=== PATIENT | female | born 1965 | race Caucasian/White ===

== ENCOUNTER 2023-03-30 08:08 | Observation (INO) ==
--- NOTE | 2023-03-01 15:27 | PAT Medication Instructions ---
Medication Instructions Date of Service March 01, 2023 Home Medications Medication Instructions Recorded ipratropium bromide 42 mcg (0.06 2 spray intranasal BID #15 mL 06/25/20 %) nasal spray Medication List azelastine 137 mcg (0.1 %) nasal spray aerosol 1 sprays intranasal BID cyclosporine 0.05 % eye drops in a dropperette (Restasis) 1 drops ophthalmic (eye) Q12H PRN ud diclofenac sodium 1 % topical gel (Voltaren) 2 gm topical QID PRN Pain fluticasone propionate 50 mcg/actuation nasal spray,suspension 2 sprays intranasal QPM pentosan polysulfate sodium 100 mg capsule (Elmiron) 100 mg PO HS pseudoephedrine HCl [Sudafed] 1 dose PO DAILY PRN Sinus Symptoms ipratropium bromide 42 mcg (0.06 %) nasal spray 2 spray intranasal BID calcium 300 mg chewable tablet 300 mg PO QPM nabumetone 500 mg tablet (Relafen) 500 mg PO TID PRN Pain topiramate 50 mg tablet (Topamax) 50 mg PO HS zinc 50 mg tablet 50 mg PO QPM ezetimibe 10 mg tablet (Zetia) 10 mg PO HS fenofibrate nanocrystallized 145 mg tablet 145 mg PO HS gabapentin 600 mg tablet 600 mg PO TID guaifenesin 600 mg tablet, extended release 12 hr (Mucinex) 600 mg PO Q12H PRN Congestion methocarbamol 750 mg tablet 750 mg PO TID omeprazole 40 mg capsule,delayed release 40 mg PO QPM venlafaxine 150 mg capsule,extended release 24 hr 300 mg PO PM acetaminophen 500 mg tablet (Acetaminophen Extra Strength) 1,000 mg PO Q6H PRN Migraine Headache alprazolam 2 mg tablet (Xanax) 2 mg PO HS cephalexin 500 mg capsule 500 mg PO TID cholecalciferol (vitamin D3) 125 mcg (5,000 unit) tablet (Vitamin D3) 125 mcg PO QPM coQ10 (ubiquinol) 100 mg capsule 100 mg PO HS levomefolate calcium 15 mg tablet (L-Methylfolate) 15 mg PO QPM magnesium 200 mg tablet 200 mg PO DAILY PRN Migraine Headache metoclopramide HCl 10 mg tablet (Reglan) 10 mg PO UD PRN Migraine Headache ondansetron HCl 8 mg tablet 8 mg PO Q8H PRN Migraine Headache potassium chloride 10 mEq tablet,extended release 20 meq PO QPM quetiapine 25 mg tablet (Seroquel) 75 mg PO HS sumatriptan succinate 100 mg tablet 100 mg PO UD PRN Migraine Headache venlafaxine 75 mg tablet 75 mg PO QPM MEDICATION INSTRUCTIONS: Continue as directed azelastine 137 mcg (0.1 %) nasal spray aerosol 1 sprays intranasal BID cyclosporine 0.05 % eye drops in a dropperette (Restasis) 1 drops ophthalmic (eye) Q12H PRN ud diclofenac sodium 1 % topical gel (Voltaren) 2 gm topical QID PRN Pain (*do not use after bathing prior to surgery) fluticasone propionate 50 mcg/actuation nasal spray,suspension 2 sprays intranasal QPM ipratropium bromide 42 mcg (0.06 %) nasal spray 2 spray intranasal BID ASK your surgeon for instructions nabumetone 500 mg tablet (Relafen) 500 mg PO TID PRN Pain STOP taking 2 weeks before surgery coQ10 (ubiquinol) 100 mg capsule 100 mg PO HS levomefolate calcium 15 mg tablet (L-Methylfolate) 15 mg PO QPM STOP taking 24 hours before surgery fenofibrate nanocrystallized 145 mg tablet 145 mg PO HS DO NOT take the morning of surgery pseudoephedrine HCl [Sudafed] 1 dose PO DAILY PRN Sinus Symptoms magnesium 200 mg tablet 200 mg PO DAILY PRN Migraine Headache guaifenesin 600 mg tablet, extended release 12 hr (Mucinex) 600 mg PO Q12H PRN Congestion methocarbamol 750 mg tablet 750 mg PO TID Take morning of surgery With a small sip of water, OTHERWISE NOTHING TO EAT OR DRINK AFTER MIDNIGHT: sumatriptan succinate 100 mg tablet 100 mg PO UD PRN Migraine Headache (if needed) cephalexin 500 mg capsule 500 mg PO TID metoclopramide HCl 10 mg tablet (Reglan) 10 mg PO UD PRN Migraine Headache ondansetron HCl 8 mg tablet 8 mg PO Q8H PRN Migraine Headache gabapentin 600 mg tablet 600 mg PO TID acetaminophen 500 mg tablet (Acetaminophen Extra Strength) 1,000 mg PO Q6H PRN Migraine Headache Take evening before surgery alprazolam 2 mg tablet (Xanax) 2 mg PO HS cholecalciferol (vitamin D3) 125 mcg (5,000 unit) tablet (Vitamin D3) 125 mcg PO QPM cephalexin 500 mg capsule 500 mg PO TID omeprazole 40 mg capsule,delayed release 40 mg PO QPM potassium chloride 10 mEq tablet,extended release 20 meq PO QPM venlafaxine 150 mg capsule,extended release 24 hr 300 mg PO PM venlafaxine 75 mg tablet 75 mg PO QPM ondansetron HCl 8 mg tablet 8 mg PO Q8H PRN Migraine Headache gabapentin 600 mg tablet 600 mg PO TID acetaminophen 500 mg tablet (Acetaminophen Extra Strength) 1,000 mg PO Q6H PRN Migraine Headache guaifenesin 600 mg tablet, extended release 12 hr (Mucinex) 600 mg PO Q12H PRN Congestion (if needed) methocarbamol 750 mg tablet 750 mg PO TID topiramate 50 mg tablet (Topamax) 50 mg PO HS zinc 50 mg tablet 50 mg PO QPM ezetimibe 10 mg tablet (Zetia) 10 mg PO HS calcium 300 mg chewable tablet 300 mg PO QPM Other Notes Check with prescriber for instructions: quetiapine 25 mg tablet (Seroquel) 75 mg PO HS Hold for 72hours prior to surgery: pentosan polysulfate sodium 100 mg capsule (Elmiron) 100 mg PO HS If you have any questions please call us at [phone] or [phone] or [phone] or [phone]
--- NOTE | 2023-03-06 15:03 | Anesthesiology Consultation ---
Date of Service March 06, 2023 Assessment & Plan (1) Encounter for pre-operative examination: - awaiting PCP office visit 03/14/23. PAT testing to be faxed to PCP office. - s/p L TKA 04/18/22 L3-L4 SAB 1 attempt + PNB. Patient reports awareness during initial stages of surgery. She also notes significant thirst after surgery. - Outpatient joint assessment: Patient is currently scheduled for inpatient pathway. If re-evaluated and patient/surgeon requests outpatient pathway, gracia mclaughlin is not acceptable candidate for outpatient joint program from anesthesia standpoint. Chart Review Chart Review: Pending: Refer to Additional Notes / Consult section and Patient seen in Pre Admission Testing Teaching & Discussion Pre-Anesthesia Teaching/Discussion Notes: Instructed NPO after midnight before surgery, except medications with 15 cc of water. Medication instructions provided according to the PAT guidelines. History Surgery Operation Date: 03/30/23 09:00 Proposed Procedures p Right Total Knee Arthroplasty - Tarik Yuen, Height/Weight Height: 5 ft 4 in Weight: 96.9 kg Allergies Allergy/AdvReac Type Severity Reaction Status Date / Time naproxen [From Aleve] Allergy Mild pruritus Verified 03/01/23 12:51 Penicillins Allergy Mild pruritus Verified 03/01/23 12:51 Sulfa (Sulfonamide Allergy Mild full body Verified 03/01/23 12:51 Antibiotics) rash codeine AdvReac Mild Vomiting Verified 03/01/23 12:51 oxycodone AdvReac Mild Vomiting Verified 03/01/23 12:51 sincalide [From Kinevac] AdvReac Mild syncope Verified 03/01/23 12:51 ("passed out") [id number] Reductase AdvReac Mild Muscle Pain Verified 03/01/23 12:51 Inhibitor Medications Home Medications Medication Instructions Recorded Confirmed Last Taken azelastine 137 mcg (0.1 %) nasal 1 sprays intranasal BID 12/09/19 03/01/23 04/17/22 10:30 spray aerosol cyclosporine 0.05 % eye drops in a 1 drops ophthalmic (eye) Q12H PRN 12/09/19 03/01/23 04/17/22 10:30 dropperette (Restasis) ud diclofenac sodium 1 % topical gel 2 gm topical QID PRN Pain 12/09/19 03/01/23 Unknown (Voltaren) fluticasone propionate 50 2 sprays intranasal QPM 12/09/19 03/01/23 04/17/22 10:30 mcg/actuation nasal spray,suspension pentosan polysulfate sodium 100 mg 100 mg PO HS 12/09/19 03/01/23 04/18/22 00:00 capsule (Elmiron) pseudoephedrine HCl [Sudafed] 1 dose PO DAILY PRN Sinus Symptoms 12/09/19 03/01/23 Unknown ipratropium bromide 42 mcg (0.06 2 spray intranasal BID #15 mL 12/11/19 03/01/23 04/17/22 10:30 %) nasal spray calcium 300 mg chewable tablet 300 mg PO QPM 07/05/21 03/01/23 07/13/21 nabumetone 500 mg tablet (Relafen) 500 mg PO TID PRN Pain 07/05/21 03/01/23 04/11/22 10:30 topiramate 50 mg tablet (Topamax) 50 mg PO HS 07/05/21 03/01/23 04/18/22 00:00 zinc 50 mg tablet 50 mg PO QPM 07/05/21 03/01/23 04/17/22 13:00 ezetimibe 10 mg tablet (Zetia) 10 mg PO HS 03/20/22 03/01/23 Unknown fenofibrate nanocrystallized 145 145 mg PO HS 03/20/22 03/01/23 04/18/22 00:00 mg tablet gabapentin 600 mg tablet 600 mg PO TID 03/20/22 03/01/23 04/18/22 02:00 guaifenesin 600 mg tablet, 600 mg PO Q12H PRN Congestion 03/20/22 03/01/23 04/16/22 22:30 extended release 12 hr (Mucinex) methocarbamol 750 mg tablet 750 mg PO TID 03/20/22 03/01/23 04/18/22 04:00 omeprazole 40 mg capsule,delayed 40 mg PO QPM 03/20/22 03/01/23 04/17/22 00:00 release venlafaxine 150 mg 300 mg PO PM 04/18/22 03/01/23 Unknown capsule,extended release 24 hr acetaminophen 500 mg tablet 1,000 mg PO Q6H PRN Migraine 03/01/23 03/01/23 Unknown (Acetaminophen Extra Strength) Headache alprazolam 2 mg tablet (Xanax) 2 mg PO HS 03/01/23 03/01/23 Unknown cephalexin 500 mg capsule 500 mg PO TID 03/01/23 03/01/23 Unknown cholecalciferol (vitamin D3) 125 125 mcg PO QPM 03/01/23 03/01/23 Unknown mcg (5,000 unit) tablet (Vitamin D3) coQ10 (ubiquinol) 100 mg capsule 100 mg PO HS 03/01/23 03/01/23 Unknown levomefolate calcium 15 mg tablet 15 mg PO QPM 03/01/23 03/01/23 Unknown (L-Methylfolate) magnesium 200 mg tablet 200 mg PO DAILY PRN Migraine 03/01/23 03/01/23 Unknown Headache metoclopramide HCl 10 mg tablet 10 mg PO UD PRN Migraine Headache 03/01/23 03/01/23 Unknown (Reglan) ondansetron HCl 8 mg tablet 8 mg PO Q8H PRN Migraine Headache 03/01/23 03/01/23 Unknown potassium chloride 10 mEq 20 meq PO QPM 03/01/23 03/01/23 Unknown tablet,extended release quetiapine 25 mg tablet (Seroquel) 75 mg PO HS 03/01/23 03/01/23 Unknown sumatriptan succinate 100 mg tablet 100 mg PO UD PRN Migraine Headache 03/01/23 03/01/23 Unknown venlafaxine 75 mg tablet 75 mg PO QPM 03/01/23 03/01/23 Unknown Additional Notes: Patient was instructed and it was corrected on provided medication instructions that fenofibrate needs stopped 48 hours prior to surgery. She verbalized full understanding and agreement, denied questions or concerns. Past Medical History Medical History (Updated 03/06/23 @ 15:15 by Soledad Martinez PA-C) Abnormal WBC count Follows with Dr. Lennon (Hem/Onc [facility]) recently discharged from heme Cystitis on elmiron Fibromyalgia Gastroparesis History of COVID-19 04/2021; fever, fatigue, cough; resolved History of endometriosis History of hyperlipidemia Hypokalemia on supplementation, follows with PCP Migraine Mild sleep apnea No device Obesity Sinus infection Rx cephalexin and prednisone, completed prednisone several days ago, symptoms improving with completing cephalexin Patient denies h/o stroke, seizures, heart attack, heart failure, DM, HTN, blood clots/DVTs or blood transfusions. Exercise / Class Metabolic Activity II 4-5 Yardwork/Stairs/Walk up hill (denies chest discomfort or shortness of breath going up one flight of stairs) Past Family History Family History Mother Sleep apnea Arthritis Heart disease Migraine Thyroid disease Father Arthritis Heart disease Other No family history of adverse response to anesthesia Past Surgical History Surgical History (Updated 03/06/23 @ 15:17 by Soledad Martinez PA-C) History of bilateral breast reduction surgery History of colonoscopy History of esophagogastroduodenoscopy (EGD) History of foot surgery rt/left plantar fasciitis History of laparoscopy History of total knee replacement left L3-L4 1 attempt + PNB. History of wisdom tooth extraction Hx of nasal septoplasty x 2 PONV (postoperative nausea and vomiting) denies needing scop patch S/P medial meniscectomy of left knee Left knee arthroscopy, meniscectomy, chondroplasty (07/14/21): LMA#4 at [facility]. No issues noted per post-op anesthesia progress note. Past Anesthesia History No Hx of Anesthesia Complications and Other (grandmother with extended memory changes after surgery, notes this was decades ago) History of PONV History of PONV (denies needing scop patch) and Hx of Motion Sickness Social History Smoking Status: Never smoker Do You Dip or Chew Tobacco: No Hx Alcohol Use: Yes Alcohol type: beer alcohol intake frequency: holidays/special occasions only Hx Substance Use: No substance use type: does not use Review of Systems Patient denies chest pain, shortness of breath, dyspnea on exertion, reflux, fever, chills, cough, wheezing, or palpitations. Physical Exam Vital Signs Vitals BP 108/78 P 88 TEMP 98.4 SP02 96% on RA RESP 17 Physical Patient resting comfortably in chair in no acute distress, alert and oriented, responding appropriately throughout visit Full cervical extension range of motion without pain TMD 3.5 finger breadths Mallampati Score 3 Dentition: h/o chipped front upper teeth, denies chipped or loose teeth, caps/crowns, implants or bridges Lungs: normal respiratory effort. Good air movement, clear throughout to auscultation, no adventitious breath sounds Cardiac: regular rate and rhythm, no murmurs noted Carotid arteries: negative bruit bilat Lab Results Anesthesia Preop Results Results Anesthesia Widget: WBC 11.30 K/ul (4.8-10.8) H 03/06/23 Hgb 12.1 g/dl (12.0-16.0) 03/06/23 Hct 37.3 % (37.0-47.0) 03/06/23 Plt 351 K/uL (130-400) 03/06/23 PT 10.8 Seconds (9.0-12.0) 03/06/23 PTT 27.6 Seconds (21.0-31.0) 03/06/23 INR 1.0 (0.9-1.1) 03/06/23 Blood Type A Positive 03/06/23 Antibody Screen NEGATIVE 03/06/23 Testing Laboratory Results 02/26/2023 SODIUM: 137 POTASSIUM: 3.8 CHLORIDE: 108 CO2: 26 BUN: 16 CREATININE: 0.9 GLUCOSE: 99 Electrocardiogram Date: 07/31/22 NSR, rate 78 bpm Low voltage QRS Chest X-Ray Date: 03/06/23 No active disease in the chest Echocardiogram Date: 10/06/22 EF 55-60% Mild tricuspid regurgitation Mild pulmonic regurgitation Grade I diastolic dysfunction
--- NOTE | 2023-03-30 08:02 | History & Physical Bridge Note ---
Date of Service March 30, 2023 History & Physical Bridge Note I have examined the patient, reviewed the History & Physical and in the interval since the performance of the History & Physical I have noted the following changes of clinical significance: no changes noted
[~2023-03-30 08:08] MED LIST: ACETAMINOPHEN 500 MG TAB PO SCH; FAMOTIDINE 20 MG TAB PO SCH; GABAPENTIN 600 MG DOSE PO SCH; LR 500ML BOLUS, THEN 15ML/HR IV SCH; LR 60ML/HR IV SCH; MIDAZOLAM HCL 1 MG/ML 2ML VIAL ONE; ORTHO JOINT MIX INFIL SCH; ROPIVACAINE 0.5% 5 MG/ML 30 ML VIAL ONE; TRANEXAMIC ACID 1,000 MG **IV Intra-op IV SCH; TRANEXAMIC ACID 1,000 MG **IV Pre-op IV SCH; ceFAZolin 2000MG 2,000 MG/15 ML SYR IV SCH; dexAMETHasone 4 MG TAB PO SCH; fentaNYL citrate PF 100 MCG/2 ML VIAL ONE
[2023-03-30] MEDS ORDERED: ORTHO JOINT ANESTHETIC ONE (08:26)
[2023-03-30] MEDS ORDERED: fentaNYL citrate PF 100 MCG/2 ML VIAL IV PRN (08:45)
[2023-03-30] MEDS ORDERED: ePHEDrine sulfate 50 MG/ML AMP IV PRN (08:45)
[2023-03-30] MEDS ORDERED: ONDANSETRON INJ 2 MG/ML 2 ML VIAL IV PRN ×2 (08:45→13:30)
[2023-03-30] MEDS ORDERED: ATROPINE SULFATE 0.1 MG/ML 10ML SYR IV PRN (08:45)
[2023-03-30] MEDS ORDERED: HYDROmorphone INJ 1 MG/ML SYRINGE IV PRN (08:45)
--- NOTE | 2023-03-30 10:55 | Operative Report ---
PG Post Operative Report Pre & Post Diagnosis Operation Date: 03/30/23 09:20 Pre-Op Diagnosis: Osteoarthritis of Right Knee Post-Op Diagnosis: Osteoarthritis of Right Knee I identified the patient and participated in the time-out.: Yes Procedure Operation Date: 03/30/23 09:20 Actual Procedures p Right Total Knee Arthroplasty(Right) - Tarik Yuen DO Surgeon Tarik Yuen DO Relationship Mgr Tarik Douglas PA-C Estimated Blood Loss 30 Findings Consistent with Post-Op Diagnosis Specimens Right femoral tibial bone Description of Procedure Implants used: I used a Rimma Persona total knee arthroplasty system with a size 6 femur, C tibia, 28 oval patella, and a size 13 medial congruent polyethylene bearing. All components were cemented in place with Biomet cement. Jenny arrived [facility] for the above procedure. She was seen in the preoperative holding area and the operative extremity was identified and signed. She was given a preoperative antibiotic, TXA, a spinal anesthetic and an adductor nerve block. She was taken back to the operating room and laid on the table in supine position. She was given basic sedation. The operative knee was then prepped and draped in sterile fashion. A timeout was done, and the patient and the operative extremity was properly identified. A midline incision was made directly over the patella. Dissection was taken down to the extensor mechanism. A midvastus arthrotomy was used. The medial retinaculum was released and the fat pad was mostly excised. The knee was flexed and the ACL, PCL, and meniscus were removed. A drill was sent down the center of the femoral canal followed by an intramedullary taj. Off that taj a distal femoral cutting block was placed. 9 mm was resected off the distal femur at 5 of valgus. A posterior referencing AP sizing guide was then placed on the distal femur. The femur measured to be a size 6. 2 drill holes were placed in 3 of external rotation. A 4-in-1 cutting block was then impacted into place. Anterior, posterior, and chamfer cuts were then made. The proximal tibia was then exposed. An external tibial alignment guide was placed. A tibial cut guide was then anchored in place and the proximal tibia was then resected. The posterior aspect of the knee was then opened up and any additional meniscus fragments and osteophytes were removed. The tibia measured to be a size C. The tibial plate was then placed in the appropriate rotation and the tibia was drilled and punched. Trial components were then placed. I used a size 13 medial congruent polyethylene insert. The knee was brought through a full range of motion and felt to be stable. The peg holes for the femoral component were then drilled. The patella was then everted and 9 mm was resected off the posterior aspect of the patella. The patella measured to be a size 28 oval. 3 peg holes were then drilled. A trial patella was placed. The knee was once again brought through a full range of motion and felt to be stable. Trial components were then removed. The surrounding soft tissues were injected with 100 cc of an orthopedic pain control cocktail. All components were then cemented into place with Biomet cement. The final polyethylene insert was then snapped into place. Once cement was dry the tourniquet was deflated. Hemostasis was obtained. A dilute betadyne lavage was then done for 3 minutes. The joint was then irrigated with normal saline solution. The midvastus arthrotomy was then closed with #1 Vicryl suture. The skin was closed with 2-0 Vicryl, 3-0V lock suture, and ady. A soft compressive dressing was placed. She was then transferred to a hospital bed and taken to the postanesthesia care unit in stable condition. She tolerated the procedure well. Tarik Douglas PA-C, was present for the entire procedure. He was critical for patient positioning, prepping, draping, retraction exposure, wound closure and application of sterile dressing. I attest to the content of the Intraoperative Record and any orders documented therein. Any exceptions are noted below.
[2023-03-30] MEDS ORDERED: LIDOCAINE 2% 2 ML VIAL/AMP(20MG/ML) INFIL ONE (10:57)
[2023-03-30] MEDS ORDERED: PROPOFOL IV EMULSION 10 MG/ML 20 ML VIAL IV ONE (10:57)
[2023-03-30] MEDS ORDERED: PHENYLEPHRINE HCL 10 MG/ML VIAL ONE (10:57)
--- NOTE | 2023-03-30 12:28 | XRay Report ---
RIGHT KNEE 2 VIEWS History: Right total knee arthroplasty. Degenerative arthritis. Postop. FINDINGS: The patient is status post a right total knee arthroplasty. The hardware is intact. No frac ture or dislocation. Skin ady are in place. IMPRESSION: Right total knee arthroplasty. No evidence for hardware complication. ACT 112: Negative or not required by law. Electronically signed by: Khanh Guerrero M.D. 03/30/2023 12:26 PM
--- NOTE | 2023-03-30 12:33 | Anesthesiology Progress Note ---
Date of Service March 30, 2023 Anesthesia Post Procedure Vital Signs Vital Signs: Temp Pulse Pulse Resp BP Pulse Ox O2 Del Method 03/30/23 12:30 97.5 F L 70 15 101/67 94 Room Air 03/30/23 12:15 97.5 F L 65 13 96/69 L 95 Room Air 03/30/23 12:10 65 14 101/67 98 Room Air 03/30/23 11:55 69 20 101/54 L 100 Room Air 03/30/23 11:35 72 14 102/80 94 Room Air 03/30/23 11:45 72 12 101/66 97 Room Air 03/30/23 11:25 72 16 102/70 96 Room Air 03/30/23 11:18 96.8 F L 80 16 104/59 L 95 Room Air 03/30/23 08:33 98.8 F 92 H 18 123/88 96 Room Air Pain Intensity Right Knee: Pain Intensity: 0 Transfer of Care Handoff Completed per policy Notes Mental Status: alert / awake / arousable and participated in evaluation Patient Amnestic to Procedure: Yes Nausea / Vomiting: adequately controlled Pain: adequately controlled Airway Patency, RR, SpO2: stable & adequate BP & HR: stable & adequate Hydration State: stable & adequate Anesthetic Complications: no major complications apparent and Pt Satisfied with anesthetic care
[2023-03-30] MEDS ORDERED: HYDROmorphone INJ 0.5 MG/0.5 ML SYR IV PRN (13:30)
[2023-03-30] MEDS ORDERED: NON-FORMULARY MEDICATION (Magnesium 200 mg Tablet) PO PRN (13:30)
[2023-03-30] MEDS ORDERED: SUMAtriptan succinate 100 MG TAB PO PRN (13:30)
[2023-03-30] MEDS ORDERED: NALOXONE HCL 0.4 MG/1 ML VIAL/CARP IV PRN (13:30)
[2023-03-30] MEDS ORDERED: METOCLOPRAMIDE HCL INJ 5 MG/ML 2 ML VIAL IV PRN (13:30)
[2023-03-30] MEDS ORDERED: MAGNESIUM HYDROXIDE SUSP 30 ML UDC PO PRN (13:30)
[2023-03-30] MEDS ORDERED: bisacodyL 10 MG SUPP PR PRN (13:30)
[2023-03-30] MEDS: SODIUM CHLORIDE 0.9% 1,000 ML IV SCH ×2 (13:57→23:26)
[2023-03-30] MEDS ORDERED: ARTIFICIAL TEARS OP PRN (14:06)
[2023-03-30] MEDS: METHOCARBAMOL 750 MG TABLET PO SCH ×2 (14:36→21:23)
[2023-03-30] MEDS: GABAPENTIN 600 MG TAB PO SCH ×2 (14:36→21:23)
[2023-03-30] MEDS: traMADol HCL 50 MG TABLET PO PRN ×2 (14:37→18:40)
[2023-03-30] MEDS: ACETAMINOPHEN 500 MG TAB PO SCH ×2 (15:18→23:26)
[2023-03-30] MEDS: ceFAZolin 2000MG 2,000 MG/15 ML SYR IV SCH (17:32)
[2023-03-30] MEDS: NABUMETONE 500 MG TABLET PO PRN (19:42)
[2023-03-30] MEDS ORDERED: ALPRAZolam 0.5 MG TABLET PO SCH (21:00)
[2023-03-30] MEDS ORDERED: TOPIRAMATE 50 MG TAB PO SCH (21:00)
[2023-03-30] MEDS ORDERED: FENOFIBRATE NANOCRYSTALLIZED 145 MG TABLET PO SCH (21:00)
[2023-03-30] MEDS ORDERED: POTASSIUM CHLORIDE CRTAB 20 MEQ TABCR PO SCH (21:00)
[2023-03-30] MEDS ORDERED: AZELASTINE HCL 0.1% NASAL 200 SPRAYS/27,400 MCG BTL SCH (21:00)
[2023-03-30] MEDS ORDERED: EZETIMIBE 10 MG TAB PO SCH (21:00)
[2023-03-30] MEDS ORDERED: VENLAFAXINE HCL XR 150 MG CAPXR PO SCH (21:00)
[2023-03-30] MEDS ORDERED: QUEtiapine FUMARATE 25 MG TABLET PO SCH (21:00)
[2023-03-30] MEDS ORDERED: FLUTICASONE PROPIONATE NA SPR 16 GM BTL SCH (21:00)
[2023-03-30] MEDS ORDERED: CALCIUM 300 MG PO SCH (21:00)
[2023-03-30] MEDS ORDERED: VENLAFAXINE HCL XR 75 MG CAPXR PO SCH (21:00)
[2023-03-30] MEDS ORDERED: SENNA 8.6 MG TAB PO SCH (21:00)
[2023-03-30] MEDS ORDERED: ASPIRIN 81 MG ECTAB PO SCH (21:00)
[2023-03-30] MEDS: DOCUSATE SODIUM 100 MG CAP PO SCH (21:19)
[2023-03-30] MEDS: AZELASTINE HCL 0.1% NASAL 200 SPRAYS/27,400 MCG BTL SCH (21:24)
[2023-03-30] MEDS: IPRATROPIUM BROMIDE NASAL SPRAY 0.06% 15ML SCH (21:24)
[2023-03-31] MEDS: ceFAZolin 2000MG 2,000 MG/15 ML SYR IV SCH (01:56)
[2023-03-31] MEDS: traMADol HCL 50 MG TABLET PO PRN ×2 (01:57→08:14)
[2023-03-31] MEDS: NABUMETONE 500 MG TABLET PO PRN (06:28)
--- NOTE | 2023-03-31 06:59 | Orthopedic Progress Note ---
Date of Service March 31, 2023 Assessment & Plan (1) Status post right knee replacement: Overall she is doing very well. She is not having too much pain in the right knee. She will be seen by physical therapy today for ambulation and range of motion exercises. She is on Eliquis for DVT prophylaxis. The nursing staff can change her dressing after physical therapy. She can be discharged home later today. She will follow-up with orthopedics in 2 weeks. Beba Alvarado was seen and examined at bedside this morning. Overall she is doing fairly well. She is having some soreness in the knee but she is also functioning well. She was able to get some sleep last night. She has been up and ambulating to the bathroom. She has no complaints.. Review of Systems All systems reviewed & are unremarkable except as noted in HPI & below. Physical Exam On physical examination of the right knee, the dressing is clean and dry. She has active dorsiflexion plantarflexion of her right ankle.. Results & Data Results & Data Laboratory Results . Diagnostic Findings Postoperative x-rays of the right knee show the prosthesis to be in anatomic alignment without any evidence of fracture complication, or loosening.. PG Care Time/CCT Total # of Minutes Spent Total Time Spent with Patient: Total time spent is greater than 50% in coordination of care (as documented) at patient's floor/unit and/or counseling patient: Coding Level of Care Code 80700 Post Operative Follow-Up Diagnoses Status post right knee replacement Z96.651
--- NOTE | 2023-03-31 07:00 | Discharge Summary ---
Date of Service March 31, 2023 Principal Diagnosis Same as "Discharge Diagnosis" noted below under Discharge Instructions. Discharge Exam On physical examination of the right knee, the dressing is clean and dry. She has active dorsiflexion plantarflexion of her right ankle.. Discharge Data Procedures Performed Operation Date: 03/30/23 09:20 Actual Procedures p Right Total Knee Arthroplasty(Right) - Tarik Yuen DO Ordered Studies 03/30/23 05:00 US - OR guided needle placemen Routine Hospital Course (1) Status post right knee replacement: On March 30 [address] [facility], [place] and underwent a right knee replacement without complication. She had a spinal anesthetic. Postoperatively she was started on Eliquis for DVT prophylaxis and transferred to the general orthopedic floors. Her hospital course was uneventful. On postop day #1, her vital signs were stable and her pain was well controlled. She was able to participate well with physical therapy doing ambulation and range of motion exercises. She was then discharged home. She will follow-up with orthopedics in 2 weeks. PG Care Time/CCT Total # of Minutes Spent Total Time Spent with Patient: Total time spent is greater than 50% in coordination of care (as documented) at patient's floor/unit and/or counseling patient: Discharge Plan Discharge Items Patient Disposition: Home - Home Health Services Reason For Visit: Degenerative Joint Disease Right Knee Discharge Diagnosis: Right knee replacement Activity: Per Instructions section Non-emergency contact: Surgeon Call non-emergency contact if: your wound has increased redness and your wound has increased drainage Follow-up/Referrals: Sultana Conner MD [Primary Care Provider] - Diet: Regular Addtl Attending Provider Instructions: Activity and Therapy Recommendations: * If you are using [facility] then therapy will be provided at your home until they feel you have accomplished all of your goals. * If you are using [facility] then Physical Therapy will be provided until they feel you are ready to start Outpatient Physical Therapy. * If you are not using home therapy then Outpatient Physical Therapy should start about 3-5 days from your day of surgery. Therapy will last about 6-10 weeks * It is important not to put a pillow under your knee when you are relaxing or sleeping. It is just as important to make sure you are getting your knee perfectly straight as it is to regain your knee bend. * You were shown a series of exercises in the hospital. Do these exercises three times each day including the exercises you were shown in physical therapy. * Get up and walk several times each day. For the first four weeks, try not to stand or walk for more than one hour at a time. If you do stand or walk for more than one hour, you will not hurt anything, but your leg will likely swell. * As you feel comfortable, you may change from the walker or crutches to a cane and then to independent walking. Medications: * Narcotic You will likely be sent home from the hospital with a prescription for the narcotic pain medication that worked best throughout your stay. * Aspirin Most patients will be required to take Aspirin 81mg twice a day for 6 weeks after surgery. This is obtained [id number] and a prescription is not necessary. * Other medications may be prescribed for specific circumstances. If you have any questions, please call the office at . * Resume previous home medications unless otherwise instructed TEDs/Elastic Stockings: The white elastic stockings help limit swelling and prevent blood clots from forming in your legs.~ The more you wear them, the more they work. Wear them for six weeks. Dressing Care: The dressing can be changed after physical therapy on postop day #1. Daily dry dressing changes for a few days, especially if the incision is still draining some. If the incision is not draining then you may leave the ady open to air. If there is a little bit of drainage or if the ady are getting stuck on your clothing then cover the incision with a dry dressing. The ady will be removed at your 2 week follow-up appointment. Showering: You may shower 5 days from the day of surgery as long as the incision is no longer draining. You may shower with the ady exposed. Let soapy water run over the ady and pat them dry. Do not scrub or soak the incision. Things To Watch For: * Drainage from the incision site that occurs more than one week after your surgery. * Increased redness at the incision site. * Fever above 102 degrees Fahrenheit. * Unusual chest pain or shortness of breath. * Call [facility] at with any of the above problems Follow-Up Visit: Follow-up with Dr. Yuen's PA (Tarik Douglas) 2-3 weeks after your day of surgery. He will remove your day and answer any questions. If you have any additional questions or concerns, Dr Yuen is usually in the office at the same time and will be available An appointment was probably scheduled when you signed-up for surgery in the office. If you have any questions call Office Instructions: More detailed instructions as well as Frequently Asked Questions were provided in a folder by our office when you signed-up for surgery. Please review these instructions when you get home. If you have any further questions or concerns, please feel free to call the office at [phone] Pending Studies at Discharge: No Stand-Alone Forms: [facility], Smoking Cessation Medications and DC Order Prescriptions: New tramadol 50 mg Tablet 50 mg PO Q4H PRN (Reason: pain) Qty: 60 0RF Eliquis 2.5 mg Tablet 2.5 mg PO BID 14 Days Qty: 28 0RF Continued ipratropium bromide 42 mcg (0.06 %) spray,non-aerosol 2 spray INTNAS BID Qty: 15 11RF Rx Instructions: administer into each nostril Elmiron 100 mg capsule 100 mg PO HS fluticasone propionate 50 mcg/actuation spray,suspension 2 sprays INTNAS QPM azelastine 137 mcg (0.1 %) aerosol,spray 1 sprays INTNAS BID pseudoephedrine HCl 1 dose PO DAILY PRN (Reason: Sinus Symptoms) diclofenac sodium [Voltaren] 1 % gel 2 gm TOP QID PRN (Reason: Pain) Restasis 0.05 % dropperette 1 drops OP Q12H PRN (Reason: ud) gabapentin 600 mg Tablet 600 mg PO TID methocarbamol 750 mg Tablet 750 mg PO TID ezetimibe [Zetia] 10 mg Tablet 10 mg PO HS fenofibrate nanocrystallized 145 mg Tablet 145 mg PO HS omeprazole 40 mg Capsule,Delayed Release(Dr/Ec) 40 mg PO QPM guaifenesin [Mucinex] 600 mg Tablet Extended Release 12hr 600 mg PO Q12H PRN (Reason: Congestion) venlafaxine 150 mg Capsule,Extended Release 24hr 300 mg PO PM Rx Instructions: plus 75mg to equal 375mg total venlafaxine 75 mg Tablet 75 mg PO QPM sumatriptan succinate 100 mg Tablet 100 mg PO UD PRN (Reason: Migraine Headache) Rx Instructions: take 1 tab at onset of headache; if no relief, may repeat 1 tab after at least 2 hrs; max = 2 tabs/24 hrs ondansetron HCl [Zofran] 8 mg Tablet 8 mg PO Q8H PRN (Reason: Migraine Headache) acetaminophen [Acetaminophen Extra Strength] 500 mg Tablet 1,000 mg PO Q6H PRN (Reason: Migraine Headache) alprazolam [Xanax] 2 mg Tablet 2 mg PO HS metoclopramide HCl [Reglan] 10 mg Tablet 10 mg PO UD PRN (Reason: Migraine Headache) Rx Instructions: administer 30 minutes before meals magnesium 200 mg Tablet 200 mg PO DAILY PRN (Reason: Migraine Headache) cholecalciferol (vitamin D3) [Vitamin D3] 125 mcg (5,000 unit) Tablet 125 mcg PO QPM levomefolate calcium [L-Methylfolate] 15 mg Tablet 15 mg PO QPM coQ10 (ubiquinol) 100 mg Capsule 100 mg PO HS Patient Comments: takes gummies quetiapine [Seroquel] 25 mg Tablet 75 mg PO HS potassium chloride 10 mEq Tablet Extended Release 20 meq PO QPM cephalexin [Keflex] 500 mg Capsule 500 mg PO TID Rx Instructions: started 02/27/23 for sinus infection (symptoms for 3 weeks) zinc 50 mg Tablet 50 mg PO QPM nabumetone [Relafen] 500 mg Tablet 500 mg PO TID PRN (Reason: Pain) calcium 300 mg Tablet,Chewable 300 mg PO QPM topiramate [Topamax] 50 mg Tablet 50 mg PO HS Admission Data Admit Date/Time: 03/30/23 11:20 Attending Provider: Tarik Yuen Admit Provider: Tarik Yuen Primary Care Provider: Sultana Conner
[2023-03-31] MEDS ORDERED: dexAMETHasone 4 MG TAB PO SCH (08:00)
[2023-03-31] MEDS: ACETAMINOPHEN 500 MG TAB PO SCH (08:15)
[2023-03-31] MEDS: GABAPENTIN 600 MG TAB PO SCH (08:17)
[2023-03-31] MEDS: AZELASTINE HCL 0.1% NASAL 200 SPRAYS/27,400 MCG BTL SCH (08:17)
[2023-03-31] MEDS: DOCUSATE SODIUM 100 MG CAP PO SCH (08:17)
[2023-03-31] MEDS: IPRATROPIUM BROMIDE NASAL SPRAY 0.06% 15ML SCH (08:18)
[2023-03-31] MEDS: METHOCARBAMOL 750 MG TABLET PO SCH (08:18)
[2023-03-31] MEDS ORDERED: APIXABAN 2.5 MG TAB PO SCH (09:00)
[2023-03-31] MEDS ORDERED: MULTIVITAMIN TAB PO SCH (09:00)
== END 2023-03-31 12:04 | disposition home health service (06) ==
LOC: ASU 08:08 → 3E 08:08